=== PATIENT | female | born 1965 | race Caucasian/White ===

== ENCOUNTER 2019-01-20 10:14 | Day surgery (SDC) | payer BC ==
[2019-01-20] MEDS ORDERED: Sodium Chloride 0.9% 10 ML Syringe FLUSH PRN (10:30)
[2019-01-20] MEDS ORDERED: Lactated Ringers 1,000 ML IV SCH (10:30)
[2019-01-20] MEDS ORDERED: Midazolam 1 MG/ML 2 ML SDV ONE (10:55)
[2019-01-20] MEDS ORDERED: Propofol 200 MG/20 ML SDV ONE (10:56)
[2019-01-20] MEDS ORDERED: Midazolam 1 MG/ML 2 ML SDV IV ONE (11:54)
[2019-01-20] MEDS ORDERED: Ondansetron 4 MG/2 ML SDV IV ONE (11:54)
[2019-01-20] MEDS ORDERED: Propofol 200 MG/20 ML SDV IV ONE (11:54)
--- NOTE | 2019-01-20 12:40 | PCM.PRNOTE ---
- Free Text/Narrative Note: PROCEDURE PERFORMED: Colonoscopy PRE-PROCEDURE DIAGNOSIS/INDICATION FOR PROCEDURE: 1st degree family history of colorectal cancer (mother, 60yo), no prior colonoscopy CONSENT: Informed consent was obtained prior to the procedure after discussion of the risks (including pain, bleeding, infection, perforation, missed polyps, inability to completely remove polyps necessitating repeat colonoscopy, adverse reaction to anesthesia, cardiovascular event), benefits and alternatives and expected outcomes. The patient expressed understanding and wished to proceed. Verbal consent given and consent form signed. PROCEDURAL PAUSE: Completed SEDATION: Per anesthesia DESCRIPTION OF PROCEDURE: Patient was placed in the left lateral decubitus position. After adequate sedation and anesthetic was administered, a rectal exam was performed revealing external hemorrhoids. A lubricated Olympus Video Colonoscope was inserted into the rectum and air insufflation was performed. The colonoscope was advanced through the rectum, sigmoid, descending, transverse, and ascending colon without difficulties. The cecum was reached and the ileocecal valve as well as the appendiceal orifice were identified, intubated, and pictorially documented. After adequate visualization of the cecum, the scope was withdrawn, giving 360- degree views of the colonic mucosa and retroflexion was performed in the rectum with the following findings noted: Ileocecal valve: Normal Cecum: Normal Ascending colon: Normal Hepatic flexure: Normal Transverse colon: Normal Splenic flexure: Normal Descending colon: Small mouthed diverticuli Sigmoid colon: Small mouthed diverticuli Rectum: Internal hemorrhoids The scope was straightened, air suction performed, and the scope withdrawn without complication. Preparation adequacy good. IMPRESSION: Colonoscopy performed revealing: - Descending and sigmoid diverticulosis - Internal and external hemorrhoids PLAN: Next colonoscopy due in 5 years, due to first degree family history of colorectal cancer. Encourage increased fiber diet and bowel regimen to ensure 1- 2 soft bowel movements per day.
== END 2019-01-20 13:40 | disposition home or self-care (01) ==
LOC: KA.SDS 10:14
PROVIDERS: ATTEND Family Medicine
DX: Z12.11 Encounter for screening for malignant neoplasm of colon (principal); K57.30 Diverticulosis of large intestine without perforation or abscess without bleeding; K64.4 Residual hemorrhoidal skin tags; K64.8 Other hemorrhoids; K21.9 Gastro-esophageal reflux disease without esophagitis; I10 Essential (primary) hypertension; E78.2 Mixed hyperlipidemia; E66.9 Obesity, unspecified; G89.29 Other chronic pain; M25.561 Pain in right knee; Z68.33 Body mass index [BMI] 33.0-33.9, adult; Z80.0 Family history of malignant neoplasm of digestive organs
CPT/HCPCS: 45378; J2250; J2405; J2704; J7120

== ENCOUNTER 2019-04-12 12:42 | Emergency (ER) | payer BC ==
--- NOTE | 2019-04-12 13:28 | EDM.PDOC ---
ED HPI GENERAL MEDICAL PROBLEM - General Chief Complaint: Fever Stated Complaint: Fever/Chills Time Seen by Provider: 04/12/19 13:00 Source of Information: Reports: Patient History Limitations: Reports: No Limitations - History of Present Illness INITIAL COMMENTS - FREE TEXT/NARRATIVE: 53 YO WF presents to ER with complaints of fever/chills, myalgias and mild headache x 1 day. Pt reports she had her second shingles shot in series yesterday and began to feel bad later on last night. Pt reports she took motrin 400mg last night which helped with her symptoms but work this am feeling similarly prompting concern and ER evaluation. Pt denies photophobia, nausea/ vomiting, neck pain. Pt denies URI symptoms- no shortness of breath, no cough, no nasal congestion, no dental pain. Pt denies dysuria or urinary frequency or abdominal pain. Onset Date: 04/11/19 Duration: Day(s): (1) Location: Reports: Generalized Quality: Reports: Ache Severity: Mild Improves with: Reports: Rest Worsens with: Reports: None Associated Symptoms: Reports: Diaphoresis, Fever/Chills, Loss of Appetite, Malaise. 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: Hematologic History: Reports: Blood Transfusion(s) - Past Surgical History Head Surgeries/Procedures: Reports: None HEENT Surgical History: Reports: Oral Surgery Cardiovascular Surgical History: Reports: None GI Surgical History: Reports: None Female Surgical History: Reports: Hysterectomy, Salpingo-Oophorectomy Other Female Surgeries/Procedures: one ovary left Social & Family History - Family History Family Medical History: Noncontributory - Caffeine Use Caffeine Use: Reports: Coffee, Tea ED ROS GENERAL - Review of Systems Review Of Systems: See Below Constitutional: Reports: Fever, Chills, Malaise, Diaphoresis HEENT: Reports: No Symptoms Respiratory: Reports: No Symptoms Cardiovascular: Reports: No Symptoms Endocrine: Reports: No Symptoms GI/Abdominal: Reports: No Symptoms : Reports: No Symptoms Musculoskeletal: Reports: No Symptoms Skin: Reports: No Symptoms Neurological: Reports: Headache Psychiatric: Reports: No Symptoms Hematologic/Lymphatic: Reports: No Symptoms Immunologic: Reports: No Symptoms ED EXAM, GENERAL - Physical Exam Exam: See Below Exam Limited By: No Limitations General Appearance: Alert, WD/WN, No Apparent Distress Eye Exam: Bilateral Eye: PERRL Ears: Normal External Exam, Normal Canal, Hearing Grossly Normal, Normal TMs Ear Exam: Bilateral Ear: Auricle Normal, Canal Normal, TM normal Nose: Normal Inspection, Normal Mucosa, No Blood Throat/Mouth: Normal Inspection, Normal Lips, Normal Teeth, Normal Gums, Normal Oropharynx, Normal Voice, No Airway Compromise Head: Atraumatic, Normocephalic Neck: Normal Inspection, Supple, Non-Tender, Full Range of Motion Respiratory/Chest: No Respiratory Distress, Lungs Clear, Normal Breath Sounds, No Accessory Muscle Use, Chest Non-Tender Cardiovascular: Normal Peripheral Pulses, Regular Rate, Rhythm, No Edema, No Gallop, No JVD, No Murmur, No Rub GI/Abdominal: Normal Bowel Sounds, Soft, Non-Tender, No Organomegaly, No Distention, No Abnormal Bruit, No Mass Back Exam: Normal Inspection, Full Range of Motion, NT Extremities: Normal Inspection, Normal Range of Motion, Non-Tender, Normal Capillary Refill, No Pedal Edema Neurological: Alert, Oriented, CN II-XII Intact, Normal Cognition, Normal Gait, Normal Reflexes, No Motor/Sensory Deficits Psychiatric: Normal Affect, Normal Mood Skin Exam: Warm, Dry, Intact, Normal Color, No Rash Lymphatic: No Adenopathy Course - Vital Signs Last Recorded V/S: Last Vital Signs Temp 37.2 C 04/12/19 12:50 Pulse 92 04/12/19 12:50 Resp 16 04/12/19 12:50 BP 128/69 04/12/19 12:50 Pulse Ox 94 L 04/12/19 12:50 Departure - Departure Time of Disposition: 13:31 Disposition: Home, Self-Care 01 Condition: Good Clinical Impression: Viral syndrome - Discharge Information Instructions: Viral Illness, Adult Referrals: Kristin Arshad MD [Physician] - Forms: ED Department Discharge Additional Instructions: 1. discharge home 2. motrin 600mg every 6 hours as needed 3. tylenol 1000mg every 6 hours as needed 4. plenty of fluids and rest 5. follow up with PCP next 48-72 hours for recheck 6. return to ER for worsening symptoms Sepsis Event Note - Evaluation Sepsis Screening Result: No Definite Risk - Focused Exam Vital Signs: Vital Signs Temp Pulse Resp BP Pulse Ox 04/12/19 12:50 37.2 C 92 16 128/69 94 L Date Exam was Performed: 04/12/19 Time Exam was Performed: 13:23 - Assessment/Plan Assessment:: 1. viral syndrome- influenza negative Plan: 1. discharge home 2. motrin 600mg every 6 hours as needed 3. tylenol 1000mg every 6 hours as needed 4. plenty of fluids and rest 5. follow up with PCP next 48-72 hours for recheck 6. return to ER for worsening symptoms
== END 2019-04-12 13:40 | disposition home or self-care (01) ==
LOC: KA.ED 12:42
DX: B34.9 Viral infection, unspecified (principal); I10 Essential (primary) hypertension
CPT/HCPCS: 87804; 99284

== ENCOUNTER 2024-08-19 09:55 | Day surgery (SDC) | payer BC ==
[2024-08-19] MEDS ORDERED: Sodium Chloride 0.9% 10 ML Syringe FLUSH PRN (10:00)
[2024-08-19] MEDS: Lactated Ringers 1,000 ML IV SCH (10:25)
[2024-08-19] MEDS ORDERED: Midazolam 1 MG/ML 2 ML SDV ONE (10:43)
[2024-08-19] MEDS ORDERED: Propofol 200 MG/20 ML SDV ONE (10:43)
[2024-08-19 14:28] VITALS: BP 148/71; PULSE 67
== END 2024-08-19 13:05 | disposition home or self-care (01) ==
LOC: KA.SDS 09:55
PROVIDERS: ATTEND Family Medicine
DX: Z12.11 Encounter for screening for malignant neoplasm of colon (principal); K57.30 Diverticulosis of large intestine without perforation or abscess without bleeding; K64.8 Other hemorrhoids; Z80.0 Family history of malignant neoplasm of digestive organs; K64.4 Residual hemorrhoidal skin tags; I10 Essential (primary) hypertension; K21.9 Gastro-esophageal reflux disease without esophagitis; E78.2 Mixed hyperlipidemia; Z79.899 Other long term (current) drug therapy
CPT/HCPCS: 00812; J2250; J2704; J7120